=== PATIENT | male | born 1955 | race Two or more races ===

== ENCOUNTER 2023-06-27 07:16 | Outpatient (CLI) | payer OTHER | END 2023-06-27 07:33 | disposition home or self-care (01) | LOC: RAD 07:16 | DX: Z13.1 Encounter for screening for diabetes mellitus (principal); Z13.220 Encounter for screening for lipoid disorders; Z13.0 Encounter for screening for diseases of the blood and blood-forming organs and certain disorders involving the immune mechanism; Z13.29 Encounter for screening for other suspected endocrine disorder; Z12.11 Encounter for screening for malignant neoplasm of colon; Z11.3 Encounter for screening for infections with a predominantly sexual mode of transmission; Z11.9 Encounter for screening for infectious and parasitic diseases, unspecified; Z13.21 Encounter for screening for nutritional disorder; Z12.5 Encounter for screening for malignant neoplasm of prostate; Z00.00 Encounter for general adult medical examination without abnormal findings; Z13.6 Encounter for screening for cardiovascular disorders ==

== ENCOUNTER 2023-07-11 07:43 | Outpatient (CLI) | payer OTHER | END 2023-07-11 07:44 | disposition home or self-care (01) | LOC: NUCLEAR 07:43 | DX: I73.9 Peripheral vascular disease, unspecified (principal); I87.2 Venous insufficiency (chronic) (peripheral); Z13.1 Encounter for screening for diabetes mellitus; Z13.220 Encounter for screening for lipoid disorders; Z13.0 Encounter for screening for diseases of the blood and blood-forming organs and certain disorders involving the immune mechanism; Z13.29 Encounter for screening for other suspected endocrine disorder; Z13.6 Encounter for screening for cardiovascular disorders; Z00.00 Encounter for general adult medical examination without abnormal findings ==

== ENCOUNTER 2023-07-18 07:24 | Outpatient (CLI) | payer OTHER | END 2023-07-18 07:26 | disposition home or self-care (01) | LOC: NUCLEAR 07:24 | DX: I73.9 Peripheral vascular disease, unspecified (principal); I87.2 Venous insufficiency (chronic) (peripheral); Z13.1 Encounter for screening for diabetes mellitus; Z13.220 Encounter for screening for lipoid disorders; Z13.29 Encounter for screening for other suspected endocrine disorder; Z12.11 Encounter for screening for malignant neoplasm of colon; Z13.6 Encounter for screening for cardiovascular disorders ==

== ENCOUNTER 2024-06-02 12:21 | Outpatient (CLI) | payer OTHER | END 2024-06-02 12:32 | disposition home or self-care (01) | LOC: MRI 12:21 | DX: M54.17 Radiculopathy, lumbosacral region (principal) | CPT/HCPCS: 72148 ==

== ENCOUNTER → 2024-06-29 | Emergency (ER) | payer OTHER ==
[~2024-06-29] VITALS: Ht 180.3 cm; Wt 79.4 kg
[~2024-06-29] MED LIST: AMLODIPINE BESYL5 MG PO; LOSARTAN-HCTZ1 EAC1 PO
== END | disposition left against medical advice (07) ==
LOC: ER 00:10
DX: Z53.21 Procedure and treatment not carried out due to patient leaving prior to being seen by health care provider (principal)

== ENCOUNTER 2024-07-11 13:04 | Outpatient (CLI) | payer OTHER | END 2024-07-11 14:31 | disposition home or self-care (01) | LOC: RAD 13:04 | PROVIDERS: ATTEND Orthopaedic Surgery | DX: M43.07 Spondylolysis, lumbosacral region (principal); M50.322 Other cervical disc degeneration at C5-C6 level; M54.16 Radiculopathy, lumbar region; M48.061 Spinal stenosis, lumbar region without neurogenic claudication; M48.02 Spinal stenosis, cervical region ==

== ENCOUNTER 2024-12-10 08:25 | Outpatient (CLI) | payer OTHER | END 2024-12-10 08:39 | disposition home or self-care (01) | LOC: MRI 08:25 | DX: M75.122 Complete rotator cuff tear or rupture of left shoulder, not specified as traumatic (principal); M25.612 Stiffness of left shoulder, not elsewhere classified; M65.812 Other synovitis and tenosynovitis, left shoulder | CPT/HCPCS: 73221 ==